=== PATIENT | female | born 1935 | race Hispanic/Latino ===

== ENCOUNTER 2016-10-02 10:30 | Outpatient (CLI) | payer MEDICARE ==
--- NOTE | 2016-10-02 15:42 | Mammography Report ---
BONE DEXA:10/02/16 10:30:00 CLINICAL: Postmenopausal. No comparison. TECHNIQUE: Two site bone DEXA performed on an Hologic scanner. FINDINGS: The average BMD of the lumbar spine L1-L4 is 0.726g/cm squared with a T-score of -2.9 and a Z-score of -0.2. The average BMD of the left hip is 0.647g/cm squared with a T-score of -2.4 and a Z-score of -0.3. The left femoral neck BMD is 0.508g/cm squared with a T score of -3.1 and a Z score of -0.8 IMPRESSION: WHO classification: Osteoporosis with high fracture risk based on lumbar and left femoral neck measurements. RECOMMENDATION: Clinical correlation and routine screening. DEFINITIONS: BMD = Bone Mineral Density T-score = BMD related to mean peak bone mass of young adult (mean expressed in Standard Deviation) Z-score = Age matched BMD expressed in SD World Health Organization (WHO) Diagnostic Criteria Normal T-score > -1 SD Osteopenia T-score between -1 and -2.4 SD Osteoporosis T-score -2.5 SD or below NOTE: BMD is not the only risk factor for fracture. One should also consider factors such as the patient's age, risk of falling, previous osteoporotic fracture, family history of osteoporotic fractures, current smoker, and low body weight. Z-scores are not calculated if >80 years of age.
--- NOTE | 2016-10-03 13:54 | Mammography Report ---
BILATERAL MAMMOGRAM: FINDINGS: The breast tissue is heterogeneously dense, which could obscure detection of small masses (approximately 50%-75% glandular). No mass, distortion, suspicious calcification, or skin change is seen. There no interval changes compared to her prior study in May 2015. CAD was utilized. IMPRESSION: Negative mammogram. There is no mammographic evidence of malignancy. RECOMMENDATION: Follow-up per ACS guidelines. BI-RADS CATEGORY: 1 = Negative ACR BI-RADS MAMMOGRAPHIC CODES: 0 = Needs additional imaging evaluation; 1 = Negative; 2 = Benign; 3 = Probably benign; 4 = Suspicious; 5 = Malignant; 6 = Known biopsy-proven malignancy COMMENT: 1. Dense breast tissue, i.e., adenosis, fibrocystic changes, etc., may obscure an underlying neoplasm. 2. Approximately 10% of cancers are not detected with mammography. 3. A negative mammography report should not delay biopsy if a clinically suspicious mass is present. COMMENT: Patient follow-up letters are generated in [employer].
== END 2016-10-02 10:31 | disposition home or self-care (01) ==
LOC: SPVWC 10:30
PROVIDERS: ATTEND Internal Medicine
DX: Z12.31 Encounter for screening mammogram for malignant neoplasm of breast (principal); M81.0 Age-related osteoporosis without current pathological fracture; Z78.0 Asymptomatic menopausal state
CPT/HCPCS: 77080; G0202; 77067

== ENCOUNTER 2017-08-20 14:25 | Outpatient (CLI) | payer MEDICARE ==
--- NOTE | 2017-08-20 16:06 | XRay Report ---
RIGHT KNEE: Pain. The bony architecture is intact without evidence of fracture or dislocation. No significant soft tissue abnormality is seen. IMPRESSION: Normal right knee.
== END 2017-08-20 14:26 | disposition home or self-care (01) ==
LOC: SPVIMAG 14:25
PROVIDERS: ATTEND Internal Medicine
DX: M17.11 Unilateral primary osteoarthritis, right knee (principal)

== ENCOUNTER 2019-04-11 14:43 | Outpatient (CLI) | payer MEDICARE ==
--- NOTE | 2019-04-12 10:23 | Mammography Report ---
BONE DEXA CLINICAL: Postmenopausal. COMPARISON: 10/02/2016 TECHNIQUE: 2 site bone DEXA performed on an Hologic scanner. FINDINGS: The average BMD of the lumbar spine L1-L4 is 0.762g/cm squared with a T score of -2.6 and a Z score o f +0.2. This compares to 0.726g/cm squared on the last exam and represents a +4.9 % change from the [ previous baseline]. The average BMD of the left hip is 0.676 g/cm squared with a T score of -2.2and a Z score of 0. This compares to 0.647 g/cm squared on the last exam and represents a +4.6 % change from the [previous bas jocelyne]. The left femoral neck BMD is 0.487 g/cm squared with a T score of -3.3 and a Z score of -0.8. IMPRESSION: 1. WHO classification: Osteoporosis with high fracture risk based on spine measurements. 2. WHO classification Osteopenia with increased fracture risk based on total left hip measurements. 3. WHO classification Osteoporosis with high fracture risk based on left femoral neck measurements. 4. A moderate improvement in both spine and left hip BMD compared to the baseline exam. RECOMMENDATION: Clinical correlation and routine screening. Definitions: BMD equal bone mineral density T score = BMD related to peak bone mass of young adult (Yossi expressed an standard deviation) Z score = age-matched BMD expressed in SD World health organization (WHO) diagnostic criteria Normal T score greater than equal to 1 standard deviation Osteopenia T score between -1 and -2.4 standard deviation Osteoporosis T score -2.5 standard deviation or below. Note: BMD is not the only risk factor for fracture; also consider factors such as the patient's age, risk of falling, previous osteoporotic fracture, family history of osteoporotic fractures, current sm oker and low body weight. Z scores are not calculated if greater than 80 years of age. Signer Name: Ki العراقي MD Signed: 04/12/2019 10:18 AM Workstation Name: [id number]
== END 2019-04-11 14:44 | disposition home or self-care (01) ==
LOC: SPVWC 14:43
PROVIDERS: ATTEND Internal Medicine
DX: M81.0 Age-related osteoporosis without current pathological fracture (principal); Z78.0 Asymptomatic menopausal state
CPT/HCPCS: 77080